=== PATIENT | female | born 1975 | race Caucasian/White ===

== ENCOUNTER 2022-06-19 11:21 | Day surgery (SDC) | payer BC ==
[2022-06-18 09:20] LABS: BASOPHILS % (AUTO) 1.8 % (0.0-5.0); EOSINOPHILS % (AUTO) 9.6 % (0.0-8.0); HEMATOCRIT 40.3 % (36-48); LYMPHOCYTES % (AUTO) 24.6 % (21.0-51.0); MEAN CORPUSCULAR HEMOGLOBIN 28.6 pg (27.0-33.0); MEAN CORPUSCULAR HGB CONC 32.5 g/dL (32.0-36.0); MONOCYTES % (AUTO) 8.1 % (3.0-13.0); NEUTROPHILS % (AUTO) 55.6 % (40.0-77.0); PLATELET COUNT (AUTO) 333 K/uL (130-400); RED BLOOD CELL COUNT(AUTO) 4.58 MIL/uL (4.00-5.50); RED CELL DISTRIBUTION WIDTH 13.5 % (11.0-15.5); WHITE BLOOD COUNT (AUTO) 6.7 K/uL (4.8-10.8)
[2022-06-18 09:54] VITALS: BP 181/79
[2022-06-19] VITALS (14 sets, daily range): BP systolic 124–147; BP diastolic 69–88
[~2022-06-19] VITALS: Ht 165.1 cm; Wt 76.0 kg
[~2022-06-19 11:21] MED LIST: ALBUTEROL INHALER 90MCG/INH IH ONE; BREO IH; CEFAZOLIN SODIUM 1 GM VIAL IVPB ONE; CEFAZOLIN SODIUM 1 GM VIAL ONE; CEFAZOLIN SODIUM 2 GM VIAL IVPB ONE; CEFAZOLIN SODIUM 2 GM VIAL IVPB SCH; CLON0.1T PO; EPHEDRINE SULFATE 50 MG/ML AMPULE ONE; FENTANYL CITRATE PF 50 MCG/1 ML 2ML VIAL ONE; GLYCOPYRROLATE 1 MG/5 ML SYRINGE ONE; HYDROCODONE/ACETAMINOPHEN 10/325 MG TAB ONE; LACTATED RINGERS 1000ML 1,000 ML IV SCH; LEVO5TAB13 PO; MIDAZOLAM HCL 1 MG/ML 2ML VIAL ONE; MONT-39 PO; NEOSTIGMINE 5MG/5ML SYR IV ONE; OLME20TA22 PO; ONDANSETRON 4MG INJ ONE; PROPOFOL 10 MG/ML 20ML VIAL IV ONE; ROCURONIUM 10MG/1ML SYR 10 MG/ML ML ONE; ROPIVACAINE 0.5% 5MG/ML 30ML IJ ONE; SOLU-MEDROL 40MG VIAL ONE; XOLAIR SQ; [UNRECOGNIZED DRUG - OTHER] IH
== END 2022-06-19 11:23 | disposition home or self-care (01) ==
LOC: DAH 11:21
PROVIDERS: ATTEND Orthopaedic Surgery
DX: S83.511A Sprain of anterior cruciate ligament of right knee, initial encounter (principal); Z20.822 Contact with and (suspected) exposure to COVID-19; S83.281A Other tear of lateral meniscus, current injury, right knee, initial encounter; M22.41 Chondromalacia patellae, right knee; I10 Essential (primary) hypertension; E78.2 Mixed hyperlipidemia; J45.998 Other asthma; Z82.0 Family history of epilepsy and other diseases of the nervous system; Z82.5 Family history of asthma and other chronic lower respiratory diseases; Z98.890 Other specified postprocedural states; Y93.89 Activity, other specified; X58.XXXA Exposure to other specified factors, initial encounter; Y92.89 Other specified places as the place of occurrence of the external cause; Y99.8 Other external cause status
CPT/HCPCS: 84703; 85025; 87426; 36415; 64447; 29888; 29882; 94640; A6260; C1713 ×6; A4663; A4606; A4649 ×6; J7120; J3010 ×2; J0690 ×4; J3490 ×2; J2710; J2250; J2704 ×2; J2405; J2920; J2795; A6223; G0168; C1776 ×2; A5120; A4215; A4223; A4222; A4221; A6450

== ENCOUNTER → 2024-09-29 | Outpatient (CLI) | payer OTHER ==
[~2024-09-29] MED LIST changes: -ALBUTEROL INHALER 90MCG/INH IH ONE; -CEFAZOLIN SODIUM 1 GM VIAL IVPB ONE; -CEFAZOLIN SODIUM 1 GM VIAL ONE; -CEFAZOLIN SODIUM 2 GM VIAL IVPB ONE; -CEFAZOLIN SODIUM 2 GM VIAL IVPB SCH; -EPHEDRINE SULFATE 50 MG/ML AMPULE ONE; -FENTANYL CITRATE PF 50 MCG/1 ML 2ML VIAL ONE; -GLYCOPYRROLATE 1 MG/5 ML SYRINGE ONE; -HYDROCODONE/ACETAMINOPHEN 10/325 MG TAB ONE; -LACTATED RINGERS 1000ML 1,000 ML IV SCH; -MIDAZOLAM HCL 1 MG/ML 2ML VIAL ONE; -NEOSTIGMINE 5MG/5ML SYR IV ONE; -OLME20TA22 PO; +OLME20TA68 PO; -ONDANSETRON 4MG INJ ONE; -PROPOFOL 10 MG/ML 20ML VIAL IV ONE; -ROCURONIUM 10MG/1ML SYR 10 MG/ML ML ONE; -ROPIVACAINE 0.5% 5MG/ML 30ML IJ ONE; -SOLU-MEDROL 40MG VIAL ONE
--- NOTE | 2024-09-30 11:12 | HMCIMG ---
EXAM: CT Cardiac calcium scoring. CLINICAL HISTORY: Screening. TECHNIQUE: Thin collimated axial CT cardiac images were obtained. A CT scan is done according to ALARA (As Low As Reasonably Achievable). CONTRAST: None. COMPARISON: None provided. FINDINGS: Calcium Score: VESSEL Number of lesions Volume mm3 Equi. Mass/mg Calcium score LM 0 0 - 0 LAD 0 0 - 0 LCX 0 0 - 0 RCA 0 0 - 0 Total 0 0 - 0 IMPRESSION: The calcium score is 0. Mild pericardial effusion. /Kit Carson
== END | disposition home or self-care (01) ==
LOC: RAH 10:09
PROVIDERS: ATTEND Internal Medicine Cardiovascular Disease
DX: Z13.6 Encounter for screening for cardiovascular disorders (principal); I31.39 Other pericardial effusion (noninflammatory)
CPT/HCPCS: 75571